=== PATIENT | female | born 1955 | race Hispanic/Latino ===

== ENCOUNTER → 2025-02-04 | Outpatient (CLI) | payer OTHER ==
--- NOTE | 2025-02-04 18:08 | HMCSR ---
APPROVED REPORT EXAM: Two-dimensional and M-mode echocardiogram with Doppler and color Doppler. 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9 cm2 TDI E/E' Gjsezi13.3E/E' Lateral6.4 Medial E' Peak V7.69 cm/sLateral E' Peak V12.34 cm/s Pulmonary Valve PV Vmax1.2 m/sPV VTI0.28 mPV Mean GR2.9 mmHg PV Peak GR5.5 mmHg Tricuspid Valve TR Vmax2.5 m/sRVSP22.7 mmHg TR Peak GR24.8 mmHg Left Ventricle The left ventricle is normal size. There is normal LV segmental wall motion. There is normal left keri tricular wall thickness. The LVEF is 50-55%. The left ventricular diastolic function is normal. Right Ventricle The right ventricle is normal size. The right ventricular systolic function is normal. Atria The left atrium size is normal. The right atrium size is normal. Aortic Valve The aortic valve is normal in structure. No aortic regurgitation is present. There is no aortic valvu lar stenosis. Mitral Valve The mitral valve is normal in structure. Posterior mitral leaflet is mildly calcified. There is trace mitral valve regurgitation noted. There is no mitral valve stenosis. Tricuspid Valve The tricuspid valve is normal in structure. There is mild tricuspid valve regurgitation noted. Pulmonic Valve Pulmonic valve is not well visualized. There is no pulmonic valvular regurgitation. Great Vessels The aortic root is normal in size. The IVC is normal in size and collapses >50% with inspiration. Pericardium There is no pericardial effusion. Other Information Quality : Good Conclusion The left ventricle is normal size. The LVEF is 50-55% with normal LV segmental wall motion. The left ventricular diastolic function is normal. The right ventricular systolic function is normal. Left atrium is mildly dilated. No hemodynamically significant valvular abnormalities. There is no pericardial effusion.
== END | disposition home or self-care (01) ==
LOC: RAH 14:44
PROVIDERS: ATTEND Internal Medicine Critical Care Medicine
DX: I08.1 Rheumatic disorders of both mitral and tricuspid valves (principal); M34.1 CR(E)ST syndrome; I27.29 Other secondary pulmonary hypertension; I73.00 Raynaud's syndrome without gangrene; R06.09 Other forms of dyspnea; M34.9 Systemic sclerosis, unspecified; Z87.891 Personal history of nicotine dependence
CPT/HCPCS: 93306